=== PATIENT | female | born 1950 | race Caucasian/White ===

== ENCOUNTER 2016-12-18 13:06 | Outpatient (CLI) | payer MEDICARE | END 2016-12-18 13:07 | disposition home or self-care (01) | DX: M81.0 Age-related osteoporosis without current pathological fracture (principal) ==

== ENCOUNTER 2016-12-18 13:08 | Outpatient (CLI) | payer MEDICARE | END 2016-12-18 13:09 | disposition home or self-care (01) | DX: Z12.31 Encounter for screening mammogram for malignant neoplasm of breast (principal) ==

== ENCOUNTER 2017-09-07 22:03 | Emergency (ER) | payer MEDICARE ==
--- NOTE | 2017-09-07 23:08 | ED Physician Documentation ---
PD HPI NECK PAIN - Stated complaint Stated Complaint: NECK PAIN - Chief complaint Chief Complaint: Ext Problem - History obtained from History obtained from: Patient - History of Present Illness Timing - onset: How many weeks ago (1) Timing - details: Gradual onset, Waxing and waning Pain level now: 8 Location: Mid, Lower, Right, Left Quality: Pain, Spasm Associated symptoms: No: Fever, Weakness, Numbness, Incontinent of urine, Unable to urinate, Hematuria, Incontinent of stool Improves with: Rest, Position Worsened by: Movement Similar symptoms before: Diagnosis (DDD on MRI 2012) Recently seen: Not recently seen Review of Systems Constitutional: reports: Reviewed and negative Throat: denies: Sore throat Musculoskeletal: reports: Neck pain Neurologic: denies: Focal weakness, Numbness, Headache PD PAST MEDICAL HISTORY - Past Medical History Musculoskeletal: Osteoporosis, Other Other Past Medical History: dengenerative disc, sever muscle spasms, - Past Surgical History Past Surgical History: Yes - Present Medications Home Medications: Ambulatory Orders Medication Instructions Recorded Confirmed Gabapentin 900 mg PO QID 09/07/17 09/07/17 Hydrocodone/Acetaminophen 1 tab PO PRN PRN 09/07/17 09/07/17 [Hydrocodone-Acetamin 5-325 mg] diazePAM [Valium] 5 mg PO TID PRN #20 tablet 09/08/17 oxyCODONE/ACET 5/325 [Percocet 5 1 - 2 each PO Q6H PRN #20 tablet 09/08/17 mg/325 mg] predniSONE [Prednisone] 40 mg PO DAILY 3 Days #6 tablet 09/08/17 - Allergies Allergies/Adverse Reactions: Allergies Allergy/AdvReac Type Severity Reaction Status Date / Time fentanyl AdvReac Nausea Verified 09/07/17 22:12 - Social History Does the pt smoke?: No Smoking Status: Never smoker Does the pt drink ETOH?: No Does the pt have substance abuse?: No - Immunizations Immunizations are current?: Yes PD ED PE NORMAL - Vitals Vital signs reviewed: Yes - General General: Alert and oriented X 3, Well developed/nourished, Other (appears uncomfortable, maintains head mostly in position of looking straight forward ( appears to be in more pain with movement of head to either side)) - HEENT HEENT: Moist mucous membranes, Pharynx benign - Neck Neck: No bony TTP - Neuro Neuro: Alert and oriented X 3, technology strategist 2-12 intact, No motor deficit, No sensory deficit, Normal speech Results - Vitals Vitals: Vital Signs - 24 hr 09/07/17 09/08/17 22:10 02:07 Temperature 36.0 C L Heart Rate 96 87 Respiratory 18 16 Rate Blood Pressure 151/90 H 132/76 H O2 Saturation 96 95 Oxygen O2 Source Room air PD MEDICAL DECISION MAKING - ED course Complexity details: re-evaluated patient, considered differential, d/w patient, d/w family ED course: on reevaluation after po valium, percocet, and decadron, patient appears comfortable and reports significant improvement Departure - Departure Disposition: 01 Home, Self Care Clinical Impression: Neck pain Condition: Good Instructions: ED Neck Pain No Trauma Follow-Up: SAMIR NGUYỄN MD [Primary Care Provider] - (Call Saturday to arrange for next available appointment) Prescriptions: diazePAM [Valium] 5 mg PO TID PRN #20 tablet PRN Reason: Pain oxyCODONE/ACET 5/325 [Percocet 5 mg/325 mg] 1 - 2 each PO Q6H PRN #20 tablet PRN Reason: Pain predniSONE [Prednisone] 40 mg PO DAILY 3 Days #6 tablet Discharge Date/Time: 09/08/17 02:11
[2017-09-07] MEDS ORDERED: oxyCOD/ACETAMIN 5 MG/325 MG TABLET PO STA (23:37)
[2017-09-07] MEDS ORDERED: diazePAM 5 MG TABLET PO STA (23:37)
[2017-09-07] MEDS ORDERED: DEXAMETHASONE 10 MG/ML VIAL PO STA (23:37)
[2017-09-07] MEDS ORDERED: CHERRY SYRUP 10 ML UDC PO ONE (23:53)
[2017-09-08] MEDS ORDERED: oxyCODONE/ACET 5/325 Prepack 4 PO STA (01:52)
[2017-09-08 02:08] VITALS: BP 132/76
== END 2017-09-08 02:11 | disposition home or self-care (01) ==
LOC: ED 22:03
DX: M54.2 Cervicalgia (principal); M81.0 Age-related osteoporosis without current pathological fracture
CPT/HCPCS: 99283; A9270

== ENCOUNTER 2017-10-09 12:35 | Outpatient (CLI) | payer MEDICARE ==
--- NOTE | 2017-10-09 17:16 | XRAY Report ---
DATE OF SERVICE: 10/09/2017 COMPLETE CERVICAL SPINE WITH FLEXION AND EXTENSION: 10/09/2017 CLINICAL INDICATION: Chronic neck pain. FINDINGS: AP, lateral neutral, lateral flexion, lateral extension, oblique, odontoid views of the cervical spine were obtained. There is mild degenerative disk and facet disease. There is no evidence of fracture or subluxation. No significant osseous neural foraminal narrowing is appreciated. No abnormal motion is seen on flexion or extension to suggest ligamentous laxity. The prevertebral soft tissues are unremarkable. IMPRESSION: MILD DEGENERATIVE CHANGES. TD: 10/09/2017 18:16 MOLLY
== END 2017-10-09 12:36 | disposition home or self-care (01) ==
LOC: DI 12:35
PROVIDERS: ATTEND Nurse Practitioner Family
DX: M50.30 Other cervical disc degeneration, unspecified cervical region (principal); M47.892 Other spondylosis, cervical region
CPT/HCPCS: 72050